=== PATIENT | male | born 1980 | race Caucasian/White ===

== ENCOUNTER 2022-10-10 12:26 | Outpatient (CLI) | payer OTHER, SELFPAY ==
[2022-10-10 13:45] LABS: Liquefaction Semen Complete in 30 min. (<30 minutes); Semen Color Opaque (Grey-opaque); Semen Viscosity Increased (Not Increa.); Volume Semen 1.5 mL (1.5-5.0); pH Semen 8.5 (7.2-8.0)
[2022-10-10 13:46] LABS: Semen Immotility 30 %; Semen Morphology Result to Follow; Semen Non-Progressive Motility 40 %; Semen Progressive Motility 30 % (>32); Semen Total Motility 70 (>40% (PM+NP)); Sperm Count 21.6 Mil/mL (60-150 million/mL)
[2022-10-13 17:41] LABS: Fructose, Semen 149 mg/dL (150-600)
== END 2022-10-10 12:27 | disposition home or self-care (01) ==
LOC: CHSLAB 12:36
PROVIDERS: PCP Family Medicine
DX: N46.9 Male infertility, unspecified (principal)
CPT/HCPCS: 82757; 88160; 89320